=== PATIENT | male | born 1935 | race Caucasian/White ===

== ENCOUNTER 2021-10-09 10:53 | Inpatient (IN) | payer MEDICARE, OTHER ==
[~2021-10-09] VITALS: Ht 167.6 cm; Wt 77.1 kg
[2021-10-09 11:37] LABS: HEMATOCRIT 35.3 % (36.7-47.1); MEAN CORPUSCULAR VOLUME 87.4 fL (73.0-96.2); PLATELET COUNT (AUTO) 165 K/uL (152-348)
[2021-10-09 12:01] LABS: ALANINE AMINOTRANSFERASE 25 U/L (16-63); ALKALINE PHOSPHATASE 99 U/L (50-136); ASPARTATE AMINOTRANSFERASE 25 U/L (15-37); BILIRUBIN,DIRECT 0.2 mg/dL (0.0-0.2); BILIRUBIN,TOTAL 0.7 mg/dL (0.2-1.0); CARBON DIOXIDE 28 mmol/L (21-32); CHLORIDE 97 mmol/L (98-107); CREATININE 1.7 mg/dL (0.6-1.3); POTASSIUM 5.3 mmol/L (3.5-5.1); TOTAL PROTEIN, SERUM 7.6 g/dL (6.4-8.2); UREA NITROGEN, BLOOD 23 mg/dL (7-18)
[2021-10-09 12:07] LABS: GLUCOSE 379 mg/dL (74-106)
--- NOTE | 2021-10-09 12:31 | NUR ---
DR SCALES EVALUATED THE P. PT IS IN ROOM #2A.
[2021-10-09] MEDS ORDERED: ASPIRIN 325 MG TABLET PO ONE (13:30)
[2021-10-09] MEDS ORDERED: NITROGLYCERIN OINT 1 GM PACKET TP ONE (13:30)
[2021-10-09] MEDS ORDERED: ASPIRIN 325 MG TABLET ONE (13:59)
[2021-10-09] MEDS ORDERED: NITROGLYCERIN 0.4 MG/TAB BOTTLE SL ONE (14:00)
[2021-10-09] MEDS ORDERED: ACETAMINOPHEN 325 MG TABLET PO PRN (17:15)
[2021-10-09] MEDS ORDERED: ENOXAPARIN SODIUM 40 MG/0.4 ML DISP.SYRIN SQ SCH (17:15)
[2021-10-09] MEDS ORDERED: MORPHINE SULFATE 2 MG/1 ML DISP.SYRIN IV PRN (17:15)
[2021-10-09] MEDS ORDERED: MAGNESIUM HYDROXIDE 30 ML LIQUID UDC PO PRN (17:15)
[2021-10-09] MEDS ORDERED: NITROGLYCERIN 0.4 MG/TAB BOTTLE SL PRN (17:15)
[2021-10-09] MEDS ORDERED: Z GUARD REMEDY PASTE 57 GM TUBE TOP PRN (17:15)
[2021-10-09] MEDS ORDERED: HYDROCODONE/APAP 5-325MG TABLET PO PRN (17:15)
[2021-10-09] MEDS ORDERED: ENOXAPARIN SODIUM 40 MG/0.4 ML DISP.SYRIN SQ ONE (17:26)
[2021-10-09] MEDS ORDERED: SIMVASTATIN 10 MG TABLET PO SCH (21:00)
--- NOTE | 2021-10-09 21:24 | NUR ---
Pt is awake alert denies pain.
[2021-10-09] MEDS: SIMVASTATIN 40 MG TABLET PO SCH (21:56)
[2021-10-09] MEDS ORDERED: SIMVASTATIN 40 MG TABLET ONE (21:58)
--- NOTE | 2021-10-10 04:37 | NUR ---
assisted pt with use of urinal pt denies pain.
--- NOTE | 2021-10-10 05:41 | NUR ---
Iv was placed by En Charge nurse to Left fore arm and covered so patient will not pull iv out. Addendum: 10/10/21 at 0542 by LISSETTE note placed in error.
[2021-10-10 06:23] LABS: HEMATOCRIT 35.3 % (36.7-47.1); MEAN CORPUSCULAR HEMOGLOBIN 28.9 uug (23.8-33.4); MEAN CORPUSCULAR VOLUME 86.2 fL (73.0-96.2); PLATELET COUNT (AUTO) 170 K/uL (152-348)
[2021-10-10 06:27] LABS: CREATININE 1.3 mg/dL (0.6-1.3); MAGNESIUM 1.8 mg/dL (1.8-2.4); PHOSPHOROUS 2.9 mg/dL (2.5-4.9); POTASSIUM 4.4 mmol/L (3.5-5.1)
--- NOTE | 2021-10-10 07:10 | NUR ---
Pt resting in bed w/ both eyes closed, NAD noted, Room air O2 sat is 99%.
--- NOTE | 2021-10-10 08:20 | NUR ---
Provided breakfast tray, pt ate w/ great appettite. No c/o SOB and pain.
[2021-10-10] MEDS: PANTOPRAZOLE SODIUM 40 MG TABLET.DR PO SCH (09:21)
[2021-10-10] MEDS: ASPIRIN EC 81 MG TABLET.DR PO SCH (09:27)
[2021-10-10] MEDS ORDERED: ENOXAPARIN SODIUM 30 MG/0.3 ML DISP.SYRIN ONE (09:28)
[2021-10-10] MEDS ORDERED: ASPIRIN 81 MG TAB.CHEW ONE (09:28)
[2021-10-10] MEDS ORDERED: PANTOPRAZOLE SODIUM 40 MG TABLET.DR PO ONE (09:28)
[2021-10-10] MEDS: ENOXAPARIN SODIUM 30 MG/0.3 ML DISP.SYRIN SUBCUT SCH (09:41)
--- NOTE | 2021-10-10 10:33 | NUR ---
Patient is resting comfortably in bed with eyes closed,NAD noted.
[2021-10-10] MEDS ORDERED: NITR0.4T48 SL (11:47)
[2021-10-10] MEDS ORDERED: SIMV-49 PO (11:47)
[2021-10-10] MEDS ORDERED: ASPI-618 PO (11:47)
--- NOTE | 2021-10-10 14:00 | NUR ---
Pt becomes restless and moans at times. morphine sulfate slow IVP given. will continue to monitor.
[2021-10-10] MEDS: ONDANSETRON 4 MG/2 ML VIAL IV PRN (14:10)
[2021-10-10] MEDS ORDERED: ONDANSETRON 4 MG/2 ML VIAL ONE (14:10)
[2021-10-10] MEDS ORDERED: MORPHINE SULFATE 2 MG/1 ML DISP.SYRIN ONE (14:10)
--- NOTE | 2021-10-10 16:01 | NUR ---
Pt resting at this time, NAD noted.
--- NOTE | 2021-10-10 16:21 | NUR ---
Called Pt's grand daughter for discharge. ETA not available, family aware of discharge.
--- NOTE | 2021-10-10 17:13 | NUR ---
Spoke to Pt's daughter in law and the main home care and home health aides teacher Aylin Rhodes @ [phone]. Per Aylin, she is the main home care and home health aides teacher for Pt and she is in the hospital herself w/ COVID. Pt is requesting case manger to be involoved for placement.
--- NOTE | 2021-10-10 17:22 | NUR ---
Placed a call to training project manager Pati. Per Pati's statement. Pt will stay in hospital since there's not any COVID + available at this time, any follow up will be tommorrow.
--- NOTE | 2021-10-10 19:21 | NUR ---
Handdsoff report given to Miguel GALDAMEZ ball mill mixer.
--- NOTE | 2021-10-10 19:41 | NUR ---
pt was moved from room 2a. pt awake alert denies pain.
[2021-10-10] MEDS: SIMVASTATIN 40 MG TABLET PO SCH (21:33)
[2021-10-10] MEDS ORDERED: SIMVASTATIN 40 MG TABLET ONE (21:35)
--- NOTE | 2021-10-11 00:25 | NUR ---
pt resting comfortably, provided water. pt denies pain.
--- NOTE | 2021-10-11 04:02 | NUR ---
Patient resting comfortably. No complaints of pain or discomfort.
[2021-10-11] MEDS: PANTOPRAZOLE SODIUM 40 MG TABLET.DR PO SCH (07:55)
[2021-10-11] MEDS ORDERED: ENOXAPARIN SODIUM 30 MG/0.3 ML DISP.SYRIN ONE (08:02)
[2021-10-11] MEDS ORDERED: ASPIRIN 81 MG TAB.CHEW ONE (08:02)
[2021-10-11] MEDS ORDERED: METOPROLOL SUCCINATE XL 50 MG TAB.SR.24H PO ONE (08:03)
[2021-10-11] MEDS ORDERED: PANTOPRAZOLE SODIUM 40 MG TABLET.DR PO ONE (08:03)
[2021-10-11] MEDS: METOPROLOL SUCCINATE XL 50 MG TAB.SR.24H PO SCH (09:31)
[2021-10-11] MEDS: ASPIRIN EC 81 MG TABLET.DR PO SCH (09:31)
[2021-10-11] MEDS: ENOXAPARIN SODIUM 30 MG/0.3 ML DISP.SYRIN SUBCUT SCH (09:32)
[2021-10-11] MEDS: ONDANSETRON 4 MG/2 ML VIAL IV PRN (09:35)
[2021-10-11] MEDS ORDERED: ONDANSETRON 4 MG/2 ML VIAL ONE (09:41)
--- NOTE | 2021-10-11 09:55 | NUR ---
Pt C/O "bad" headache, [place] given.
[2021-10-11] MEDS ORDERED: HYDROCODONE/APAP 5-325MG TABLET ONE (09:59)
--- NOTE | 2021-10-11 12:33 | NUR ---
Patient is resting comfortably in bed with eyes closed, NAD noted.
--- NOTE | 2021-10-11 13:12 | NUR ---
Spoke to Pati, outpatient case manager, pt will be transfered tommorrow. All arangment will be done by Pati.
--- NOTE | 2021-10-11 13:20 | NUR ---
Lunch tray offered, pt decline eating lunch but drank fluids. Denies headache.
--- NOTE | 2021-10-11 19:45 | NUR ---
Hands off report given to Guillermo GALDAMEZ.
--- NOTE | 2021-10-11 22:56 | NUR ---
Patient is resting in bed comfortably, no complaint of pain or discomfort at this time.
[2021-10-11] MEDS ORDERED: SIMVASTATIN 40 MG TABLET ONE (23:09)
[2021-10-11] MEDS: SIMVASTATIN 40 MG TABLET PO SCH (23:17)
--- NOTE | 2021-10-12 06:30 | NUR ---
attempted to call mattress spring encaser for update, no answer
[2021-10-12] MEDS: PANTOPRAZOLE SODIUM 40 MG TABLET.DR PO SCH (06:58)
[2021-10-12] MEDS ORDERED: PANTOPRAZOLE SODIUM 40 MG TABLET.DR PO ONE (07:04)
--- NOTE | 2021-10-12 07:16 | NUR ---
(currently with COVID-19 PANDEMIC staffing issues and charting) Patient is in ER bed 2A, has been admitted in ER since 10/09/21.
--- NOTE | 2021-10-12 07:30 | NUR ---
Hands off report received from RUDOLPH Siddiqi. Chart Writer assumes care: patient is awake, confuse, intermittently moans, respiration:easy, moving all extremities, skin is warm and dry, on ISOLATION for COVID+ infection. Patient is for discharge to home vs rehab center. Patient has been in ER dpeartment since 10/09/21 for COVID infection, pending callback from case sealer Pati.
[2021-10-12 11:20] VITALS: BP 130/88
[2021-10-12] MEDS ORDERED: ASPIRIN EC 81 MG TABLET.DR PO ONE (11:20)
[2021-10-12] MEDS: METOPROLOL SUCCINATE XL 50 MG TAB.SR.24H PO SCH (11:20)
[2021-10-12] MEDS ORDERED: METOPROLOL SUCCINATE XL 50 MG TAB.SR.24H PO ONE (11:20)
[2021-10-12] MEDS: ASPIRIN EC 81 MG TABLET.DR PO SCH (11:20)
[2021-10-12] MEDS ORDERED: ENOXAPARIN SODIUM 30 MG/0.3 ML DISP.SYRIN ONE (11:20)
[2021-10-12] MEDS: ENOXAPARIN SODIUM 30 MG/0.3 ML DISP.SYRIN SUBCUT SCH (11:21)
--- NOTE | 2021-10-12 11:23 | NUR ---
[facility] [place] and patient's ride [id number]. I assisted patient to hot lunch.
--- NOTE | 2021-10-12 13:29 | NUR ---
Patient ate 25% of lunch. [facility] is here. Hands off report given to buttermaker continuous churn Arie and Deni. I attempted to given report to [facility], unsuccessful. customer complaint clerk Ignacia of [facility] said, "Nurse Chelita or Ed will call you as soon as possible if they have questions." Patient left ER in stable condition.
--- NOTE | 2021-10-12 13:29 | NUR ---
Patient left with all his personal belongings with the ambulance staff. ISOLATION measures maintained.
[2021-10-13] MEDS ORDERED: ENOXAPARIN SODIUM 40 MG/0.4 ML DISP.SYRIN SQ SCH (09:00)
[2021-10-14] MEDS ORDERED: SULFAMETH/TRIMETH 800/160 MG TABLET ONE (01:00)
== END 2021-10-12 15:00 | DRG 205 ==
LOC: ER 10:53 → TRANSITION 20:54
PROVIDERS: ATTEND Internal Medicine
DX: M94.0 Chondrocostal junction syndrome [Tietze] (principal); U07.1 COVID-19; N17.0 Acute kidney failure with tubular necrosis; E87.1 Hypo-osmolality and hyponatremia; E87.5 Hyperkalemia; D64.9 Anemia, unspecified; I10 Essential (primary) hypertension; I25.10 Atherosclerotic heart disease of native coronary artery without angina pectoris; Z95.1 Presence of aortocoronary bypass graft; R73.9 Hyperglycemia, unspecified; E86.0 Dehydration; F03.90 Unspecified dementia, unspecified severity, without behavioral disturbance, psychotic disturbance, mood disturbance, and anxiety
CPT/HCPCS: 36415; 70030-TC; 71045; 71250; 83735; 84100; 85025; 93005; A4663; G0378; J1650; J2270; J2405